=== PATIENT | male | born 1975 | race Caucasian/White ===

== ENCOUNTER 2017-02-09 20:57 | Emergency (ER) | payer OTHER ==
[2017-02-09] MEDS ORDERED: TRANEXAMIC ACID 1,000 MG/10 ML VIAL TP ONE (22:03)
--- NOTE | 2017-02-09 22:23 | EDPHY ---
H & P Time Seen by Provider: 02/09/17 21:13 HPI/ROS: CHIEF COMPLAINT: tongue bleeding HISTORY OF PRESENT ILLNESS: 42-year-old male presents emergency department after he bit his tongue while eating 3 hours prior to arrival. Patient reports continued bleeding that will not stop. He does not take anticoagulants. He denies other complaints. Smoking Status: Never smoked Physical Exam: GEN: Awake, alert, oriented, no acute distress RESP: nl resp effort MSK: Normal appearing SKIN: 3 mm laceration/puncture wound to center of tongue with oozing of blood Constitutional: Initial Vital Signs Temperature (C) 36.7 C 02/09/17 21:01 Heart Rate 64 02/09/17 21:01 Respiratory Rate 18 02/09/17 21:01 Blood Pressure 167/96 H 02/09/17 21:01 O2 Sat (%) 96 02/09/17 21:01 O2 Delivery Mode Room Air Allergies/Adverse Reactions: No Known Allergies Allergy (Unverified 02/09/17 21:02) Home Medications: Medication Instructions Recorded NK [No Known Home Meds] 02/09/17 MDM/Departure - MDM Medications Given: Discontinued Medications Tranexamic Acid (Cyklokapron) 500 mg TP EDNOW ONE Stop: 02/09/17 22:04 Last Admin: 02/09/17 22:08 Dose: 500 mg ED Course/Re-evaluation: Pressure placed to tongue with saturated gauze in txa. Bleeding has subsided. Patient will be discharged home. He is given return precautions for return bleeding. - Depart Disposition: Home, Routine, Self-Care Clinical Impression: Tongue laceration Qualifiers: Encounter type: initial encounter Qualified Code(s): S01.512A - Laceration without foreign body of oral cavity, initial encounter Condition: Good Instructions: Laceration (ED) Additional Instructions: Place pressure to tongue with gauze soaked in the txa for 5 minutes if bleeding starts again. Return to emergency department if it does not stop. Referrals: NONE *PRIMARY CARE P,. [Primary Care Provider] - As per Instructions
[2017-02-09 22:43] VITALS: BP 155/89; PULSE 65; RESP 16; TEMP 97.9; O2SAT 95
== END 2017-02-09 22:56 | disposition home or self-care (01) ==
DX: S01.512A Laceration without foreign body of oral cavity, initial encounter (principal); X58.XXXA Exposure to other specified factors, initial encounter